=== PATIENT | female | born 1960 | race Caucasian/White ===

== ENCOUNTER 2019-05-19 19:04 | Emergency (ER) | payer OTHER ==
[~2019-05-19] VITALS: Ht 152.4 cm; Wt 80.5 kg
[~2019-05-19 19:04] MED LIST: IBUP-2217
[2019-05-19 19:17] VITALS: BP 162/76
--- NOTE | 2019-05-19 19:28 | NUR ---
Pt ambulated to bed 9.
--- NOTE | 2019-05-19 19:36 | NUR ---
PT ASSESSMENT COMPLETE. PT SEATED IN CHAIR BEDSIDE. WILL CONTINUE TO MONITOR.
[2019-05-19 19:38] VITALS: BP 162/76
[2019-05-19] MEDS ORDERED: BACITRACIN OINT 500 UNITS/GM PKT TP ONE (20:35)
--- NOTE | 2019-05-19 21:25 | NUR ---
Patient discharged with v/s stable. Written and verbal after care instructions given and explained. Patient alert, oriented and verbalized understanding of instructions. Ambulatory with steady gait. All questions addressed prior to discharge. ID band removed. Patient advised to follow up with PMD. Rx of KEFLEX, IBUPROFEN, AND BACITRACIN given. Patient educated on indication of medication including possible reaction and side effects. Opportunity to ask questions provided and answered.
== END 2019-05-19 21:25 | disposition home or self-care (01) ==
LOC: MED 19:04
DX: T81.89XA Other complications of procedures, not elsewhere classified, initial encounter (principal); Z88.3 Allergy status to other anti-infective agents; Z88.2 Allergy status to sulfonamides; Z79.899 Other long term (current) drug therapy
CPT/HCPCS: 90471; 90715; 99283